=== PATIENT | male | born 1990 | race Two or more races ===

== ENCOUNTER 2017-07-03 13:36 | Emergency (ER) | payer SELFPAY ==
[~2017-07-03] VITALS: Ht 172.7 cm; Wt 71.0 kg
[2017-07-03] MEDS ORDERED: IBUPROFEN 600MG TABLET PO ONE (16:15)
[2017-07-03] MEDS ORDERED: LIDOCAINE HCL 1%/EPI 1:200,000 30 ML VIAL MC ONE (16:15)
[2017-07-03] MEDS ORDERED: HYDROCODONE/ACETAMINOPHEN 5/325MG TABLET PO ONE (16:15)
[2017-07-03] MEDS ORDERED: BACITRACIN ZINC OINT UDPKT TOP ONE (16:15)
[2017-07-03 16:28] VITALS: BP 110/69
== END 2017-07-03 20:06 | disposition home or self-care (01) ==
LOC: ER 13:46
DX: S00.01XA Abrasion of scalp, initial encounter (principal); Y04.0XXA Assault by unarmed brawl or fight, initial encounter; W18.39XA Other fall on same level, initial encounter; Y93.89 Activity, other specified; Y92.488 Other paved roadways as the place of occurrence of the external cause
CPT/HCPCS: 70450; 99284